=== PATIENT | male | born 1980 | race Caucasian/White ===

== ENCOUNTER 2016-10-24 17:45 | Emergency (ER) | payer BC ==
[~2016-10-24] VITALS: Ht 193 cm; Wt 123.0 kg
[2016-10-24 19:04] LABS: HEMATOCRIT 41.7 % (38.0-50.0); MCH 32.3 PG (29.0-34.0); MCHC 36.5 G/DL (30.0-36.0); MCV 88.7 FL (86-99); MEAN PLAT.VOLUME 11.1 uM^3 (9.0-12.4); PLATELET COUNT 173 K/uL (156-360); RBC DIS.WIDTH-SD 37.9 % (39-53)
[2016-10-24 19:10] LABS: CHLORIDE 99 mEq/L (99-109); POTASSIUM 3.9 mEq/L (3.7-5.4); SODIUM 135 mEq/L (136-147)
[2016-10-24 19:12] LABS: GLUCOSE 319 mg/dL (70-99)
[2016-10-24 19:14] LABS: ANION GAP 11 MEQ/L (2-14)
[2016-10-24 19:16] LABS: GFR ESTIMATE (CALCULATED) > 59 mL/min/
[2016-10-24 19:17] LABS: UREA NITROGEN (BUN) 15 mg/dL (9-23)
[2016-10-24 19:45] LABS: ADD MIUA? NO; BILIRUBIN NEGATIVE; BLOOD NEGATIVE; COLOR YELLOW ((YELLOW)); GLUCOSE (STRIP) >=1000; KETONES NEGATIVE; LEUKOCYTES NEGATIVE; NITRITE NEGATIVE; PH, URINE 6.5 (5-8); PROTEIN (STRIP) NEGATIVE; UCUL ADDED? NO; UROBILINOGEN 0.2 MG/DL (0.2-1.0)
[2016-10-24 21:36] VITALS: BP 152/93
== END 2016-10-24 21:41 | disposition home or self-care (01) ==
LOC: RME 17:45 → EME 17:45 → RME 21:41
DX: R10.9 Unspecified abdominal pain (principal); M54.5 Low back pain; R73.9 Hyperglycemia, unspecified; F17.200 Nicotine dependence, unspecified, uncomplicated; Z87.442 Personal history of urinary calculi; Z88.6 Allergy status to analgesic agent
CPT/HCPCS: 74176; 80048; 81003; 85027; 99281; 99284